=== PATIENT | female | born 1990 | race Caucasian/White ===

== ENCOUNTER 2017-01-03 13:04 | Emergency (ER) | payer MEDICAID ==
[2017-01-03 13:10] VITALS: BP 151/87
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
== END 2017-01-03 14:42 | disposition home or self-care (01) ==
LOC: DL.ED 13:04
DX: S63.501A Unspecified sprain of right wrist, initial encounter (principal); X58.XXXA Exposure to other specified factors, initial encounter
CPT/HCPCS: 73110-RT; 99283

== ENCOUNTER 2017-01-20 11:20 | Emergency (ER) | payer MEDICAID ==
[2017-01-20 12:12] VITALS: BP 126/81
[2017-01-20 12:19] LABS: CHLORIDE,CL 102 mmol/L (101-111); SODIUM,NA 136 mmol/L (135-145)
--- NOTE | 2017-01-20 13:58 | EDM.PDOC ---
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 She states there were no clots, but a moderate smear when wiping. She states she was unsure if it was from intercourse or not. She states she also had some "deep uterine" pain after intercourse, which is still present. She rates this pain 3/10. She states she is Rh- . This is her third . She denies any further problems. LMP 11/25/16, she estimates about 9 weeks and she has not yet seen her OB provider. 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: Psychiatric History: Reports: Depression Hematologic History: Reports: Other (See Below) 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 Dermatologic History: Reports: Other (See Below) Other Dermatologic History: perioral dermatitis - Infectious Disease History Infectious Disease History: Reports: Chicken Pox, Herpes - Past Surgical History HEENT Surgical History: Reports: Oral Surgery, Other (See Below) Other HEENT Surgeries/Procedures: wisdom teeth Social & Family History - Tobacco Use Smoking Status *Q: Never Smoker Second Hand Smoke Exposure: No - Caffeine Use Caffeine Use: Reports: Coffee, Soda - Recreational Drug Use Recreational Drug Use: No ED ROS GENERAL - Review of Systems Review Of Systems: ROS reveals no pertinent complaints other than HPI. ED EXAM - Physical Exam Exam: See Below Exam Limited By: No Limitations General Appearance: Alert, WD/WN, No Apparent Distress Eye Exam: Bilateral Eye: EOMI, Normal Inspection Ears: Normal External Exam, Hearing Grossly Normal Nose: Normal Inspection, Normal Mucosa, No Blood Throat/Mouth: Normal Inspection, Normal Lips, Normal Teeth, Normal Gums, Normal Oropharynx, Normal Voice, No Airway Compromise Head: Atraumatic, Normocephalic Neck: Normal Inspection, Supple, Non-Tender, Full Range of Motion Respiratory/Chest: No Respiratory Distress, Lungs Clear, Normal Breath Sounds, No Accessory Muscle Use, Chest Non-Tender Cardiovascular: Normal Peripheral Pulses, Regular Rate, Rhythm, No Edema, No Gallop, No JVD, No Murmur, No Rub GI/Abdominal Exam: Normal Bowel Sounds, Soft, Non-Tender, No Organomegaly, No Distention, No Abnormal Bruit, No Mass, Pelvis Stable Rectal Exam: Deferred (Female) Exam: Deferred for Placenta Previa Movement: Not Appreciated Back Exam: Normal Inspection, Full Range of Motion Extremities: Normal Inspection, Normal Range of Motion, Non-Tender, No Pedal Edema, Normal Capillary Refill Neurological: Alert, Oriented, Normal Cognition, Normal Gait, No Motor/Sensory Deficits Psychiatric: Normal Affect, Normal Mood Skin Exam: Warm, Dry, Intact, Normal Color, No Rash Lymphatic: No Adenopathy Course - Vital Signs Last Recorded V/S: Last Vital Signs Temp 98.4 F 01/20/17 11:33 Pulse 81 01/20/17 11:33 Resp 16 01/20/17 11:33 BP 126/81 01/20/17 11:33 Pulse Ox 100 01/20/17 11:33 - Orders/Labs/Meds Labs: Laboratory Tests 01/20/17 01/20/17 01/20/17 Range/Units 11:41 11:41 11:41 WBC (5.0-10.0) 10^3/uL RBC (4.2-5.4) 10^6/uL Hgb (12.0-16.0) g/dL Hct (37.0-47.0) % MCV (80-100) fL MCH (27.0-34.0) pg MCHC (33.0-35.0) g/dL Plt Count (150-450) 10^3/uL Neut % (Auto) (42.2-75.2) % Lymph % (Auto) (20.5-50.1) % [place] % (Auto) (2-8) % Eos % (Auto) (1.0-3.0) % Baso % (Auto) (0.0-1.0) % Sodium (135-145) mmol/L Potassium (3.6-5.0) mmol/L Chloride (101-111) mmol/L Carbon Dioxide (21.0-31.0) mmol/L Anion Gap BUN (7-18) mg/dL Creatinine (0.6-1.3) mg/dL Est Cr Clr Drug Dosing mL/min Estimated GFR (MDRD) BUN/Creatinine Ratio Glucose (74-105) mg/dL Calcium (8.4-10.2) mg/dl Total Bilirubin (0.2-1.0) mg/dL AST (10-42) IU/L ALT (10-60) IU/L Alkaline Phosphatase (42-121) IU/L Total Protein (6.7-8.2) g/dl Albumin (3.2-5.5) g/dl Globulin Albumin/Globulin Ratio HCG, Quant (0-25) mIU/ml Beta HCG, Quant mIU/ml Urine Color Yellow (YELLOW) Urine Appearance Slightly cloudy (CLEAR) Urine pH 5.5 (5.0-9.0) Ur Specific [place] 1.025 (1.005-1.030) Urine Protein Negative (NEGATIVE) Urine Glucose (UA) Negative (NEGATIVE) Urine Ketones 15 H (NEGATIVE) Urine Occult Blood Negative (NEGATIVE) Urine Nitrite Negative (NEGATIVE) Urine Bilirubin Negative (NEGATIVE) Urine Urobilinogen 0.2 (0.2-1.0) mg/dL Ur Leukocyte Esterase Negative (NEGATIVE) Urine RBC Not seen /HPF Urine WBC 0-5 (0-5/HPF) /HPF Ur Epithelial Cells Few /HPF Urine Bacteria Moderate H (0-FEW/HPF) /HPF Urine Mucus Moderate H /LPF Urine HCG, Qual Positive Urine Opiates Screen Negative (NEGATIVE) Ur Oxycodone Screen Negative (NEGATIVE) Urine Methadone Screen Negative (NEGATIVE) Ur Barbiturates Screen Negative (NEGATIVE) U Tricyclic Antidepress Negative (NEGATIVE) Ur Phencyclidine Scrn Negative (NEGATIVE) Ur Amphetamine Screen Negative (NEGATIVE) U Methamphetamines Scrn Negative (NEGATIVE) Urine MDMA Screen Negative (NEGATIVE) U Benzodiazepines Scrn Negative (NEGATIVE) Urine Cocaine Screen Negative (NEGATIVE) U Marijuana (THC) Screen Negative (NEGATIVE) Blood Type 01/20/17 01/20/17 01/20/17 Range/Units 11:50 11:50 11:50 WBC 8.4 (5.0-10.0) 10^3/uL RBC 4.50 (4.2-5.4) 10^6/uL Hgb 13.7 D (12.0-16.0) g/dL Hct 39.6 (37.0-47.0) % MCV 88.0 D (80-100) fL MCH 30.4 (27.0-34.0) pg MCHC 34.6 (33.0-35.0) g/dL Plt Count 220 (150-450) 10^3/uL Neut % (Auto) 73.7 (42.2-75.2) % Lymph % (Auto) 18.8 L (20.5-50.1) % [place] % (Auto) 6.7 (2-8) % Eos % (Auto) 0.6 L (1.0-3.0) % Baso % (Auto) 0.2 (0.0-1.0) % Sodium 136 (135-145) mmol/L Potassium 4.0 (3.6-5.0) mmol/L Chloride 102 (101-111) mmol/L Carbon Dioxide 25.0 (21.0-31.0) mmol/L Anion Gap 13.0 BUN 10 (7-18) mg/dL Creatinine 0.6 (0.6-1.3) mg/dL Est Cr Clr Drug Dosing 131.85 mL/min Estimated GFR (MDRD) > 60 BUN/Creatinine Ratio 16.66 Glucose 76 (74-105) mg/dL Calcium 9.2 (8.4-10.2) mg/dl Total Bilirubin 0.4 (0.2-1.0) mg/dL AST 20 (10-42) IU/L ALT 17 (10-60) IU/L Alkaline Phosphatase 34 L (42-121) IU/L Total Protein 7.1 (6.7-8.2) g/dl Albumin 4.2 (3.2-5.5) g/dl Globulin 2.9 Albumin/Globulin Ratio 1.45 HCG, Quant > 1371 H (0-25) mIU/ml Beta HCG, Quant 400748 mIU/ml Urine Color (YELLOW) Urine Appearance (CLEAR) Urine pH (5.0-9.0) Ur Specific [place] (1.005-1.030) Urine Protein (NEGATIVE) Urine Glucose (UA) (NEGATIVE) Urine Ketones (NEGATIVE) Urine Occult Blood (NEGATIVE) Urine Nitrite (NEGATIVE) Urine Bilirubin (NEGATIVE) Urine Urobilinogen (0.2-1.0) mg/dL Ur Leukocyte Esterase (NEGATIVE) Urine RBC /HPF Urine WBC (0-5/HPF) /HPF Ur Epithelial Cells /HPF Urine Bacteria (0-FEW/HPF) /HPF Urine Mucus /LPF Urine HCG, Qual Urine Opiates Screen (NEGATIVE) Ur Oxycodone Screen (NEGATIVE) Urine Methadone Screen (NEGATIVE) Ur Barbiturates Screen (NEGATIVE) U Tricyclic Antidepress (NEGATIVE) Ur Phencyclidine Scrn (NEGATIVE) Ur Amphetamine Screen (NEGATIVE) U Methamphetamines Scrn (NEGATIVE) Urine MDMA Screen (NEGATIVE) U Benzodiazepines Scrn (NEGATIVE) Urine Cocaine Screen (NEGATIVE) U Marijuana (THC) Screen (NEGATIVE) Blood Type 01/20/17 Range/Units 11:50 WBC (5.0-10.0) 10^3/uL RBC (4.2-5.4) 10^6/uL Hgb (12.0-16.0) g/dL Hct (37.0-47.0) % MCV (80-100) fL MCH (27.0-34.0) pg MCHC (33.0-35.0) g/dL Plt Count (150-450) 10^3/uL Neut % (Auto) (42.2-75.2) % Lymph % (Auto) (20.5-50.1) % [place] % (Auto) (2-8) % Eos % (Auto) (1.0-3.0) % Baso % (Auto) (0.0-1.0) % Sodium (135-145) mmol/L Potassium (3.6-5.0) mmol/L Chloride (101-111) mmol/L Carbon Dioxide (21.0-31.0) mmol/L Anion Gap BUN (7-18) mg/dL Creatinine (0.6-1.3) mg/dL Est Cr Clr Drug Dosing mL/min Estimated GFR (MDRD) BUN/Creatinine Ratio Glucose (74-105) mg/dL Calcium (8.4-10.2) mg/dl Total Bilirubin (0.2-1.0) mg/dL AST (10-42) IU/L ALT (10-60) IU/L Alkaline Phosphatase (42-121) IU/L Total Protein (6.7-8.2) g/dl Albumin (3.2-5.5) g/dl Globulin Albumin/Globulin Ratio HCG, Quant (0-25) mIU/ml Beta HCG, Quant mIU/ml Urine Color (YELLOW) Urine Appearance (CLEAR) Urine pH (5.0-9.0) Ur Specific [place] (1.005-1.030) Urine Protein (NEGATIVE) Urine Glucose (UA) (NEGATIVE) Urine Ketones (NEGATIVE) Urine Occult Blood (NEGATIVE) Urine Nitrite (NEGATIVE) Urine Bilirubin (NEGATIVE) Urine Urobilinogen (0.2-1.0) mg/dL Ur Leukocyte Esterase (NEGATIVE) Urine RBC /HPF Urine WBC (0-5/HPF) /HPF Ur Epithelial Cells /HPF Urine Bacteria (0-FEW/HPF) /HPF Urine Mucus /LPF Urine HCG, Qual Urine Opiates Screen (NEGATIVE) Ur Oxycodone Screen (NEGATIVE) Urine Methadone Screen (NEGATIVE) Ur Barbiturates Screen (NEGATIVE) U Tricyclic Antidepress (NEGATIVE) Ur Phencyclidine Scrn (NEGATIVE) Ur Amphetamine Screen (NEGATIVE) U Methamphetamines Scrn (NEGATIVE) Urine MDMA Screen (NEGATIVE) U Benzodiazepines Scrn (NEGATIVE) Urine Cocaine Screen (NEGATIVE) U Marijuana (THC) Screen (NEGATIVE) Blood Type AB NEGATIVE - Radiology Interpretation Free Text/Narrative:: OB US: No acute findings See rad report Departure - Departure Time of Disposition: 14:49 Disposition: Home, Self-Care 01 Condition: Good Clinical Impression: Vaginal bleeding in , related conditions, unspecified, first trimester - Discharge Information Instructions: Pelvic Pain, Female Forms: ED Department Discharge Additional Instructions: Follow up with your OB provider Return to ER with any further problems.
--- NOTE | 2017-01-20 14:39 | US ---
Clinical history: 26-year-old "gravid" 3 para 2 female (serum hCG 1371) with cramping and vaginal ble eding. Interpretation: Midline uterus enlarged with a clearly demonstrated gestational sac in the fundus. Uniformly thick chorionic rind and no sign of subchorionic bleed. [place]-rump length measurement 1.53 cm approximates an 8 week intrauterine gestation with a regular ra pid heart rate 167 bpm. Yolk sac present. No abnormal adnexal mass lesions or free fluid in the cul-de-sac. CONCLUSION: Single live first trimester 8 week intrauterine gestation.
== END 2017-01-20 15:29 | disposition home or self-care (01) ==
LOC: DL.ED 11:20
DX: O20.9 Hemorrhage in early pregnancy, unspecified (principal); Z3A.09 9 weeks gestation of pregnancy
CPT/HCPCS: 36415; 76815; 80053; 80305; 81001; 81025; 84702; 85025; 86900; 86901; 99284

== ENCOUNTER 2020-01-06 12:10 | Emergency (ER) | payer MEDICAID ==
[2020-01-06 12:42] VITALS: BP 123/93; PULSE 91
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
[2020-01-06] MEDS ORDERED: Lidocaine 1% 30 ML SDV INJECT ONE (14:47)
[2020-01-06] MEDS ORDERED: Bacitracin Oint 1 GM U/D Packet TOP ONE (14:49)
[2020-01-06] MEDS ORDERED: Azithromycin 250 MG Tab PO ONE (15:53)
[2020-01-06] MEDS ORDERED: cefTRIAXone 2 GM Vial IM ONE (15:54)
[2020-01-06] MEDS ORDERED: Lidocaine 1% 30 ML SDV ONE (16:04)
[2020-01-06] MEDS ORDERED: cefTRIAXone 1 GM Vial IM ONE (16:12)
== END 2020-01-06 16:44 | disposition home or self-care (01) ==
LOC: DL.ED 12:10
DX: T76.21XA Adult sexual abuse, suspected, initial encounter (principal); Z88.1 Allergy status to other antibiotic agents; Z88.8 Allergy status to other drugs, medicaments and biological substances
CPT/HCPCS: 84703; 86803; 87340; 87389; 96372; 99284; A9270; J0696; J2001; 36415